=== PATIENT | female | born 1990 | race Caucasian/White ===

== ENCOUNTER 2019-04-26 22:33 | Inpatient (IN) ==
[2019-04-26] MEDS ORDERED: BUTORPHANOL 2 MG/ML VIAL IV PRN (23:22)
[2019-04-26] MEDS ORDERED: ONDANSETRON 4 MG/2 ML VIAL IV PRN (23:22)
[2019-04-26 23:38] LABS: Basophils # 0.1 10*3/uL (0.0-0.2); Basophils % 0.4 % (0.0-0.8); Eosinophils # 0.1 10*3/uL (0.0-0.87); Eosinophils % 0.5 % (0.00-10.9); Hematocrit 33.8 VOL% (35.7-47.0); Hemoglobin 10.8 GM/DL (12.0-16.0); Immature Granulocytes % 1.8 %; Immature Granulocytes Absolute 0.21 #; Lymphocytes # 1.8 10*3/uL (1.4-4.0); Lymphocytes % 15.7 % (21.3-54.2); Mean Corpuscular Volume 84.9 FL (87-102); Mean Platelet Volume 11.1 FL (9.6-12.0); Monocytes % 7.5 % (1.7-12.7); Neutrophils % 74.1 % (38.7-73.9); Platelet Count 244 T/CUMM (130-400); Red Blood Count 3.98 MC/CUMM (3.8-5.5); White Blood Count 11.7 T/CUMM (4-12)
[2019-04-27 00:07] LABS: Alanine Aminotransferase 16 U/L (13-56); Albumin 2.6 G/DL (3.4-5.0); Alkaline Phosphatase 208 U/L (45-117); Aspartate Amino Transferase 14 U/L (0-37); Bilirubin,Total < 0.39 MG/DL (0.2-1.0); Blood Urea Nitrogen 14 MG/DL (7-18); Calcium 8.5 MG/DL (8.5-10.1); Estimated Glom Filtration Rate 122 ML/MIN; Glucose 100 MG/DL (74-106); Osmolality,Calculated 283.1 MOS/KG (273-304); Total Protein 6.9 G/DL (6.4-8.3)
[2019-04-27] MEDS: LACTATED RINGERS 1,000 ML IV SCH ×3 (05:14→09:46)
[2019-04-27] MEDS ORDERED: hydrOXYzine HCL 25 MG/1 ML VIAL IM PRN (05:30)
[2019-04-27] MEDS ORDERED: PROMETHAZINE 25 MG/1 ML VIAL IM PRN (05:30)
[2019-04-27] MEDS ORDERED: fentaNYL 2 MCG/ROPIV 0.2% EPID 100 ML EPIDURAL SCH (05:30)
[2019-04-27] MEDS ORDERED: FAMOTIDINE 20 MG/2 ML VIAL IV ONE (05:30)
[2019-04-27] MEDS ORDERED: CITRIC ACID/SODIUM CITRATE 30 ML UDCUP PO ONE (05:30)
[2019-04-27] MEDS ORDERED: ePHEDrine 50 MG/ML AMP IV PRN (05:30)
[2019-04-27] MEDS ORDERED: NALOXONE 0.4 MG/ML VIAL IV PRN (05:30)
[2019-04-27] MEDS ORDERED: diphenhydrAMINE 50 MG/1 ML VIAL IV PRN (05:30)
[2019-04-27 07:56] LABS: Apearance,Urine CLEAR (Clear); Bacteria,Urine Occasional /HPF (Few); Bilirubin,Urine Negative (Negative); Blood, Urine Negative (Negative); Glucose,Urine (UA) Negative (Negative); Ketones,Urine Negative (Negative); Mucus,Urine Occasional /LPF (Occasional); Nitrite,Urine Negative (Negative); Protein,Urine Negative; RBC,Urine <1 /HPF (0-4); Squamous Epithelial Cell,Urine Occasional /HPF (0-10); Urine Color Straw (Yellow); Urine Specific Gravity 1.011 (1.001-1.035); Urine Urobilinogen < 2.0 EU/DL (0.2-1.0)
[2019-04-27] MEDS ORDERED: OXYTOCIN/LR 20 UNIT/1,000 ML BAG IV SCH (08:00)
[2019-04-27] MEDS ORDERED: ACETAMINOPHEN 325 MG TABLET PO PRN ×2 (10:28→13:29)
[2019-04-27] MEDS ORDERED: miSOPROStoL 200 MCG TABLET ONE (11:51)
[2019-04-27] MEDS ORDERED: LIDOCAINE 1% 50 ML VIAL ONE (11:51)
[2019-04-27] MEDS ORDERED: CARBOPROST TROMETHAMINE 250 MCG/ML AMP IM ONE (11:52)
[2019-04-27] MEDS ORDERED: OXYTOCIN/LR 20 UNIT/1,000 ML BAG IV ONE ×2 (11:52→13:29)
[2019-04-27] MEDS ORDERED: TRANEXAMIC ACID 1,000 MG/10 ML VIAL ONE (11:52)
[2019-04-27] MEDS ORDERED: METHYLERGONOVINE 0.2 MG/1 ML AMP ONE (11:52)
[2019-04-27] MEDS ORDERED: miSOPROStoL 200 MCG TABLET RECTAL ONE (13:25)
[2019-04-27] MEDS ORDERED: HYDROCORTISONE 2.5% RECTAL CREAM 30 GM TUBE TOP PRN (13:29)
[2019-04-27] MEDS ORDERED: DIPH/TET/ACEL PERT BOOSTER VACCINE 0.5 ML VIAL IM ONE (13:29)
[2019-04-27] MEDS ORDERED: BISACODYL 10 MG SUPP RECTAL PRN (13:29)
[2019-04-27] MEDS ORDERED: MEASLES/MUMPS/RUBELLA VACCINE 0.5 ML VIAL SUBCUT ONE (13:29)
[2019-04-27] MEDS ORDERED: LANOLIN 50% CREAM 0.3 OZ TUBE TOP PRN (13:29)
[2019-04-27] MEDS ORDERED: WITCH HAZEL PADS 100/JAR TOP PRN (13:29)
[2019-04-27] MEDS ORDERED: BENZOCAINE 20%/MENTHOL 0.5% SPRAY 56 GM CAN TOP PRN (13:29)
[2019-04-27] MEDS ORDERED: oxyCODONE/ACETAMINOPHEN 5-325 MG TABLET PO PRN ×2 (13:29)
[2019-04-27] MEDS ORDERED: ONDANSETRON 4 MG/2 ML VIAL IV PRN (13:29)
[2019-04-27] MEDS ORDERED: RHO(D) IMMUNE GLOBULIN 300 MCG SYRINGE IM ONE (13:29)
[2019-04-27] MEDS: IBUPROFEN 800 MG TABLET PO PRN (19:26)
[2019-04-27] MEDS ORDERED: DOCUSATE SODIUM 100 MG CAPSULE PO SCH (21:00)
[2019-04-28 05:37] LABS: Basophils % 0.2 % (0.0-0.8); Eosinophils # 0.1 10*3/uL (0.0-0.87); Eosinophils % 0.7 % (0.00-10.9); Hematocrit 28.2 VOL% (35.7-47.0); Hemoglobin 9.2 GM/DL (12.0-16.0); Immature Granulocytes % 1.8 %; Immature Granulocytes Absolute 0.25 #; Mean Corpuscular HGB Conc 32.6 GM/DL (32-36); Mean Corpuscular Volume 85.2 FL (87-102); Mean Platelet Volume 10.8 FL (9.6-12.0); Monocytes % 6.8 % (1.7-12.7); Neutrophils % 75.5 % (38.7-73.9); Platelet Count 162 T/CUMM (130-400); Red Blood Count 3.31 MC/CUMM (3.8-5.5); Red Cell Distribution Width 13.1 % (9.3-17.3); White Blood Count 13.6 T/CUMM (4-12)
[2019-04-28] MEDS: IBUPROFEN 800 MG TABLET PO PRN ×2 (05:38→10:55)
== END 2019-04-28 16:24 | disposition home or self-care (01) | DRG 807 ==
LOC: N.LDOUT 22:33 → N.LD 22:34
PROVIDERS: ADMIT Specialist; ATTEND Specialist

== ENCOUNTER 2021-11-28 21:36 | Inpatient (IN) ==
[2021-11-28] MEDS ORDERED: TRANEXAMIC ACID 1,000 MG in SODIUM CHLORIDE 0.9% 100 ML IV PRN (21:43)
[2021-11-28] MEDS ORDERED: LACTATED RINGERS 250 ML IV ONE (21:43)
[2021-11-28] MEDS ORDERED: CARBOPROST TROMETHAMINE 250 MCG/ML AMP IM PRN (21:43)
[2021-11-28] MEDS ORDERED: LACTATED RINGERS 500 ML IV PRN (21:43)
[2021-11-28] MEDS ORDERED: ONDANSETRON 4 MG/2 ML VIAL IV PRN (21:43)
[2021-11-28] MEDS ORDERED: METHYLERGONOVINE 0.2 MG/1 ML AMP IM PRN (21:43)
[2021-11-28] MEDS ORDERED: OXYTOCIN/LR 20 UNIT/1,000 ML BAG IV ONE (21:43)
[2021-11-28] MEDS ORDERED: BUTORPHANOL 2 MG/ML VIAL IV PRN (21:43)
[2021-11-28] MEDS ORDERED: BUTORPHANOL 1 MG/ML VIAL IV PRN (21:43)
[2021-11-28] MEDS ORDERED: miSOPROStoL 200 MCG TABLET RECTAL PRN (21:43)
[2021-11-28 22:24] LABS: Basophils % 0.4 % (0.0-0.8); Eosinophils # 0.1 10*3/uL (0.0-0.87); Eosinophils % 0.8 % (0.00-10.9); Hemoglobin 9.9 GM/DL (12.0-16.0); Immature Granulocytes % 1.9 %; Lymphocytes % 19.5 % (21.3-54.2); Mean Corpuscular HGB Conc 31.9 GM/DL (32-36); Mean Platelet Volume 11.1 FL (9.6-12.0); Monocytes # 0.8 10*3/uL (0.11-0.8); Monocytes % 7.4 % (1.7-12.7); Platelet Count 267 T/CUMM (130-400); Red Blood Count 3.78 MC/CUMM (3.8-5.5); Red Cell Distribution Width 13.8 % (9.3-17.3); White Blood Count 10.3 T/CUMM (4-12)
[2021-11-29] MEDS ORDERED: AMPICILLIN INJ 2,000 MG in SODIUM CHLORIDE 0.9% 100 ML IV ONE
[2021-11-29] MEDS: LACTATED RINGERS 1,000 ML IV SCH ×2 (00:05→07:30)
[2021-11-29] MEDS: AMPICILLIN INJ 1,000 MG in SODIUM CHLORIDE 0.9% 100 ML IV SCH ×2 (04:15→08:39)
[2021-11-29] MEDS ORDERED: OXYTOCIN/LR 20 UNIT/1,000 ML BAG IV SCH (04:30)
[2021-11-29] MEDS ORDERED: CITRIC ACID/SODIUM CITRATE 30 ML UDCUP PO ONE (06:42)
[2021-11-29] MEDS ORDERED: FAMOTIDINE 20 MG/2 ML VIAL IV ONE (06:42)
[2021-11-29] MEDS ORDERED: LACTATED RINGERS 1,000 ML IV ONE (06:42)
[2021-11-29] MEDS ORDERED: LACTATED RINGERS 500 ML IV ONE (06:42)
[2021-11-29] MEDS ORDERED: hydrOXYzine HCL 25 MG/1 ML VIAL IM PRN (07:12)
[2021-11-29] MEDS ORDERED: NALOXONE 0.4 MG/ML VIAL IV PRN (07:12)
[2021-11-29] MEDS ORDERED: PROMETHAZINE 25 MG/1 ML VIAL IM ONE (07:12)
[2021-11-29] MEDS ORDERED: ONDANSETRON 4 MG/2 ML VIAL IV ONE (07:12)
[2021-11-29] MEDS ORDERED: diphenhydrAMINE 50 MG/1 ML VIAL IV PRN ×2 (07:12)
[2021-11-29] MEDS ORDERED: ePHEDrine 50 MG/ML VIAL IV PRN (07:12)
[2021-11-29] MEDS ORDERED: fentaNYL 2 MCG/ROPIV 0.2% EPID 100 ML EPIDURAL SCH (07:30)
[2021-11-29] MEDS ORDERED: TERBUTALINE 1 MG/1 ML VIAL ONE (07:48)
[2021-11-29 08:03] LABS: Bacteria,Urine Rare /HPF (Few); Bilirubin,Urine Negative (Negative); Blood, Urine Negative (Negative); Glucose,Urine (UA) Negative (Negative); Ketones,Urine Negative (Negative); Nitrite,Urine Negative (Negative); Protein,Urine Negative (Negative); RBC,Urine Rare /HPF (0-4); Urine Appearance Clear (Clear); Urine Color Straw (Yellow); Urine Urobilinogen 0.2 eU/dL (<2.0); Urine pH 6.5 (4.5-8.0)
[2021-11-29] MEDS ORDERED: SODIUM CHLORIDE 0.9% 0 ML IV ONE (10:31)
[2021-11-29 11:11] LABS: Cord Arterial Blood HCO3 19.1 MMOL/L
[2021-11-29 11:14] LABS: Cord Venous Blood HCO3 21.7 MMOL/L; Cord Venous Blood PCO2 43.8 MMHG
[2021-11-29] MEDS ORDERED: LANOLIN 50% CREAM 0.3 OZ TUBE TOP PRN (14:09)
[2021-11-29] MEDS ORDERED: MEASLES/MUMPS/RUBELLA VACCINE 0.5 ML VIAL SUBCUT ONE (14:09)
[2021-11-29] MEDS ORDERED: oxyCODONE/ACETAMINOPHEN 5-325 MG TABLET PO PRN ×2 (14:09)
[2021-11-29] MEDS ORDERED: BISACODYL 10 MG SUPP RECTAL PRN (14:09)
[2021-11-29] MEDS ORDERED: DIPH/TET/ACEL PERT BOOSTER VACCINE 0.5 ML VIAL IM ONE (14:09)
[2021-11-29] MEDS ORDERED: HYDROCORTISONE 2.5% RECTAL CREAM 30 GM TUBE TOP PRN (14:09)
[2021-11-29] MEDS ORDERED: IBUPROFEN 800 MG TABLET PO PRN (14:09)
[2021-11-29] MEDS ORDERED: WITCH HAZEL PADS 100/JAR TOP PRN (14:09)
[2021-11-29] MEDS ORDERED: ONDANSETRON 4 MG/2 ML VIAL IV PRN (14:09)
[2021-11-29] MEDS ORDERED: BENZOCAINE 20%/MENTHOL 0.5% SPRAY 56 GM CAN TOP PRN (14:09)
[2021-11-29] MEDS ORDERED: OXYTOCIN/LR 20 UNIT/1,000 ML BAG IV ONE (14:09)
[2021-11-29] MEDS ORDERED: ACETAMINOPHEN 325 MG TABLET PO PRN (14:09)
[2021-11-29] MEDS ORDERED: RHO(D) IMMUNE GLOBULIN 300 MCG SYRINGE IM ONE (14:09)
[2021-11-29] MEDS: DOCUSATE SODIUM 100 MG CAPSULE PO SCH (21:35)
[2021-11-30 05:06] LABS: Basophils % 0.3 % (0.0-0.8); Eosinophils # 0.1 10*3/uL (0.0-0.87); Eosinophils % 0.5 % (0.00-10.9); Hematocrit 30.3 VOL% (35.7-47.0); Hemoglobin 9.2 GM/DL (12.0-16.0); Immature Granulocytes % 1.5 %; Immature Granulocytes Absolute 0.18 #; Lymphocytes % 16.2 % (21.3-54.2); Mean Corpuscular HGB Conc 30.4 GM/DL (32-36); Mean Corpuscular Volume 85.6 FL (87-102); Mean Platelet Volume 11.7 FL (9.6-12.0); Monocytes # 0.8 10*3/uL (0.11-0.8); Monocytes % 6.2 % (1.7-12.7); Neutrophils % 75.3 % (38.7-73.9); Platelet Count 224 T/CUMM (130-400); Red Blood Count 3.54 MC/CUMM (3.8-5.5); Red Cell Distribution Width 13.8 % (9.3-17.3); White Blood Count 12.3 T/CUMM (4-12)
[2021-11-30] MEDS ORDERED: MULTIVITAMIN (PRENATAL) TABLET PO SCH (09:00)
[2021-11-30] MEDS: DOCUSATE SODIUM 100 MG CAPSULE PO SCH (09:22)
[2021-11-30 11:56] VITALS: BP 124/76
== END 2021-11-30 14:55 | disposition home or self-care (01) | DRG 807 ==
LOC: N.LDOUT 21:36 → N.LD 21:37 → N.OB 11-29 14:04
PROVIDERS: ADMIT Specialist; ATTEND Specialist